=== PATIENT | male | born 1950 ===

== ENCOUNTER 2023-10-01 12:49 | Outpatient (CLI) | payer OTHER ==
[~2023-10-01 12:49] MED LIST: FIORICET PO; HYZAAR 100-251 EACH PO; NORVASC5 MG PO; PRILOSEC OTC20 MG PO
== END 2023-10-01 12:51 | disposition home or self-care (01) ==
LOC: SONOGRAMA 12:49
PROVIDERS: ATTEND Pathology Anatomic Pathology & Clinical Pathology
DX: C73 Malignant neoplasm of thyroid gland (principal); E06.1 Subacute thyroiditis